=== PATIENT | female | born 1985 | race Caucasian/White ===

== ENCOUNTER 2018-05-17 09:16 | Emergency (ER) | payer MEDICAID ==
[~2018-05-17] VITALS: Ht 152.4 cm; Wt 72.7 kg
[2018-05-17 09:18] VITALS: BP 105/66
[2018-05-17] MEDS ORDERED: PRED20TA PO (09:59)
== END 2018-05-17 10:15 | disposition home or self-care (01) ==
LOC: ER 09:17
DX: H01.00A Unspecified blepharitis right eye, upper and lower eyelids (principal); Z87.891 Personal history of nicotine dependence; Z79.899 Other long term (current) drug therapy
CPT/HCPCS: 99283